=== PATIENT | female | born 1955 | race Caucasian/White ===

== ENCOUNTER → 2022-02-04 | Outpatient (CLI) | payer OTHER | LOC: WCC 07:39 | DX: E11.621 Type 2 diabetes mellitus with foot ulcer (principal); E11.51 Type 2 diabetes mellitus with diabetic peripheral angiopathy without gangrene; E11.40 Type 2 diabetes mellitus with diabetic neuropathy, unspecified; I10 Essential (primary) hypertension; I25.10 Atherosclerotic heart disease of native coronary artery without angina pectoris; I70.261 Atherosclerosis of native arteries of extremities with gangrene, right leg; M79.674 Pain in right toe(s); Z89.412 Acquired absence of left great toe; Z79.4 Long term (current) use of insulin | CPT/HCPCS: G0463 ==